=== PATIENT | female | born 1980 | race Caucasian/White ===

== ENCOUNTER 2018-08-30 20:48 | Inpatient (IN) | payer OTHER ==
[~2018-08-30] VITALS: Ht 162.6 cm; Wt 99.8 kg
[2018-08-30 20:55] VITALS: BP 131/93
[2018-08-30] MEDS ORDERED: IBUPROFEN 800800 M1 PO (21:00)
[2018-08-30] MEDS ORDERED: AUGMENTIN 875-1 EACH PO (21:00)
[2018-08-30] MEDS ORDERED: WELLBUTRIN 100100 MG PO (21:01)
[2018-08-30] MEDS ORDERED: EFFEXOR XR75 MG PO (21:01)
[2018-08-30] MEDS ORDERED: LAMICTAL XR100 MG PO (21:01)
[2018-08-30 22:00] LABS: ABSOLUTE BASOPHILS 0.2 thou/uL (0.0-0.2); ABSOLUTE EOSINOPHILS 0.4 thou/uL (0.0-0.7); BASOPHILS 1.3 %; EOSINOPHILS 2.7 %; HEMATOCRIT 40.7 % (37.0-47.0); HEMOGLOBIN 13.2 gm/dL (12.0-15.0); MCH 30.2 pg (26.0-34.0); MCHC 32.3 g/dL (28.0-37.0); MCV 93.3 fL (80.0-100.0); MPV 8.3 fl. (7.2-11.1); NUCLEATED RBCS 0 /100WBC; PLATELET COUNT* 305 thou/uL (150-400); RBC 4.36 mil/uL (4.20-5.00); RDW-CV 14.4 % (10.5-14.5); WBC 13.6 thou/uL (4.0-11.0)
[2018-08-30 22:08] LABS: CALCIUM 8.4 mg/dL (8.5-10.1); CREATININE 0.9 mg/dL (0.6-1.3); POTASSIUM 4.1 mmol/L (3.5-5.1)
[2018-08-30 22:12] LABS: ALBUMIN 3.3 g/dL (3.4-5.0); TOTAL BILIRUBIN 0.2 mg/dL (<0.1-1.0); TOTAL PROTEIN 6.5 g/dL (6.4-8.2)
[2018-08-31 02:01] VITALS: BP 112/66
[2018-08-31 05:53] VITALS: BP 106/60
[2018-08-31 09:00] VITALS: BP 118/61
[2018-08-31 09:50] VITALS: BP 103/65
[2018-08-31 16:12] VITALS: BP 102/55
[2018-08-31 20:00] VITALS: BP 104/54
[2018-09-01] VITALS: BP 94/58
[2018-09-01 04:00] VITALS: BP 90/53
[2018-09-01 11:35] VITALS: BP 90/53
== END 2018-09-01 11:54 | disposition home or self-care (01) | DRG 603 ==
LOC: M.ERS 20:48 → M.ORTHSURG 21:44 → M.TBA-ER 21:44 → M.ORTHSURG 08-31 09:49
PROVIDERS: Physician Assistant; ADMIT Family Medicine
DX: L03.011 Cellulitis of right finger (principal); F41.9 Anxiety disorder, unspecified; F32.9 Major depressive disorder, single episode, unspecified; G43.909 Migraine, unspecified, not intractable, without status migrainosus; F17.210 Nicotine dependence, cigarettes, uncomplicated; T39.395A Adverse effect of other nonsteroidal anti-inflammatory drugs [NSAID], initial encounter; W55.01XA Bitten by cat, initial encounter; Y93.89 Activity, other specified; M65.9 Synovitis and tenosynovitis, unspecified; Y92.89 Other specified places as the place of occurrence of the external cause; Y99.8 Other external cause status; Z79.899 Other long term (current) drug therapy